=== PATIENT | female | born 1995 | race Asian ===

== ENCOUNTER 2020-10-04 18:46 | Outpatient (CLI) | payer BC | END 2020-10-04 18:47 | disposition home or self-care (01) | LOC: COV 18:46 | PROVIDERS: ATTEND Family Medicine | DX: R53.83 Other fatigue (principal); R09.81 Nasal congestion; J34.89 Other specified disorders of nose and nasal sinuses; Z20.822 Contact with and (suspected) exposure to COVID-19 ==